=== PATIENT | female | born 1980 | race Caucasian/White ===

== ENCOUNTER 2025-03-02 00:35 | Emergency (ER) | payer BC ==
[2025-03-02 00:42] VITALS: BP 141/82; PULSE 86; RESP 20; TEMP 97.9; BMI 33.7
[2025-03-02] MEDS ORDERED: KETOROLAC TROMETHAMINE 15 MG/ML VIAL ONE (01:48)
[2025-03-02] MEDS: KETOROLAC TROMETHAMINE 15 MG/ML VIAL IM ONE (02:00)
== END 2025-03-02 03:22 | disposition home or self-care (01) ==
LOC: JER 00:35
DX: S52.122A Displaced fracture of head of left radius, initial encounter for closed fracture (principal); W01.10XA Fall on same level from slipping, tripping and stumbling with subsequent striking against unspecified object, initial encounter
CPT/HCPCS: 73070-TC-LT-FY; 99283-25